=== PATIENT | male | born 1985 | race Caucasian/White ===

== ENCOUNTER 2022-08-15 20:29 | Emergency (ER) | payer MEDICAID, OTHER ==
[~2022-08-15] VITALS: Ht 180.3 cm; Wt 94.7 kg
[2022-08-15] MEDS ORDERED: NEOM0.1O7 OP (22:22)
[2022-08-15 22:48] VITALS: BP 133/78
== END 2022-08-15 22:50 | disposition home or self-care (01) ==
LOC: ER 20:29
DX: T15.01XA Foreign body in cornea, right eye, initial encounter (principal); X58.XXXA Exposure to other specified factors, initial encounter; Y93.89 Activity, other specified; Y92.89 Other specified places as the place of occurrence of the external cause; Y99.8 Other external cause status
CPT/HCPCS: 65220